=== PATIENT | female | born 1965 | race Caucasian/White ===

== ENCOUNTER 2021-06-09 08:23 | Day surgery (SDC) | payer MEDICAID ==
[2021-06-09] MEDS ORDERED: Propofol 200 MG/20 ML SDV IV ONE (08:24)
[2021-06-09] MEDS ORDERED: Lactated Ringers 1,000 ML IV SCH (08:30)
[2021-06-09] MEDS ORDERED: Sodium Chloride 0.9% 10 ML Syringe FLUSH PRN (08:30)
[2021-06-09 10:36] VITALS: BP 100/60; PULSE 69
== END 2021-06-09 10:44 | disposition home or self-care (01) ==
LOC: FB.SDS 08:23
PROVIDERS: ATTEND Surgery
DX: Z12.11 Encounter for screening for malignant neoplasm of colon (principal); D12.8 Benign neoplasm of rectum; E78.00 Pure hypercholesterolemia, unspecified; I10 Essential (primary) hypertension; E11.9 Type 2 diabetes mellitus without complications; E03.9 Hypothyroidism, unspecified; E66.9 Obesity, unspecified; Z79.84 Long term (current) use of oral hypoglycemic drugs; Z79.82 Long term (current) use of aspirin; Z79.899 Other long term (current) drug therapy; Z79.890 Hormone replacement therapy; Z98.890 Other specified postprocedural states; Z68.41 Body mass index [BMI] 40.0-44.9, adult
CPT/HCPCS: 00812-QZ; 82947; 88305; J2704; J7120

== ENCOUNTER 2023-11-16 08:25 | Day surgery (SDC) | payer MEDICAID ==
[2023-11-16] MEDS ORDERED: Propofol 200 MG/20 ML SDV IV ONE (08:26)
[2023-11-16] MEDS ORDERED: Midazolam 1 MG/ML 2 ML SDV IV ONE (08:26)
[2023-11-16] MEDS ORDERED: Sodium Chloride 0.9% 10 ML Syringe FLUSH PRN (08:30)
[2023-11-16 09:16] VITALS: BP 125/60; PULSE 76
[2023-11-16] MEDS: Lactated Ringers 1,000 ML IV SCH (09:17)
[2023-11-16] MEDS: Simethicone Drops 40 MG/0.6 ML 30 ML Bottle ONE (09:39)
== END 2023-11-16 10:45 | disposition home or self-care (01) ==
LOC: FB.SDS 08:25
PROVIDERS: ATTEND Surgery
DX: Z12.11 Encounter for screening for malignant neoplasm of colon (principal); D12.6 Benign neoplasm of colon, unspecified; Z86.010 Personal history of colon polyps; E11.9 Type 2 diabetes mellitus without complications; Z79.84 Long term (current) use of oral hypoglycemic drugs; Z79.899 Other long term (current) drug therapy
CPT/HCPCS: 45385; 82947; 88305; A9270; J2250; J2704; J7120; 00811

== ENCOUNTER 2024-02-21 16:14 | Emergency (ER) | payer MEDICAID ==
[2024-02-21 16:21] VITALS: BP 153/71; PULSE 89
== END 2024-02-21 16:57 | disposition home or self-care (01) ==
LOC: FB.ED 16:14
DX: G51.0 Bell's palsy (principal); E78.00 Pure hypercholesterolemia, unspecified; I10 Essential (primary) hypertension; E11.9 Type 2 diabetes mellitus without complications; E03.9 Hypothyroidism, unspecified; Z79.82 Long term (current) use of aspirin; Z79.84 Long term (current) use of oral hypoglycemic drugs; Z79.899 Other long term (current) drug therapy
CPT/HCPCS: 99284